=== PATIENT | female | born 1945 | race Caucasian/White ===

== ENCOUNTER 2019-08-30 14:19 | Inpatient (IN) | payer OTHER, MEDICAID ==
[~2019-08-30] VITALS: Ht 149.9 cm; Wt 95.7 kg
[~2019-08-30 14:19] MED LIST: ALLOPURINOL 10100 M3 PO; AMLODIPINE BESY10 MG PO; AMOXICILLIN 50500 M1 PO; AMOXICILLIN 50500 MG; ARIPIPRAZOLE10 MG PO; BENADRYL25 MG; BYSTOLIC 5 MG5 M1 PO; CIPRO250 M1 PO; COLACE100 MG; COREG6.25 MG PO; COZAAR 25 MG TA25 M2; CYCLOBENZAPRINE10 MG PO; EFFEXOR XR150 MG PO; ENOXAPARIN40 MG/0.1; ETODOLAC PO; FLEXERIL PO; HYDROCODON-ACE1 EAC1 PO; IRON325; LIDOCAINE VISC100 M1 MM; LISINOPRIL20 MG PO; LOVASTAT10; LOVASTATIN 20 M20 MG PO; METFORMIN HCL500 MG PO; NEURONTIN600 MG PO; NORCO 7.5-3251 EACH; PENICILLIN V P500 MG PO; PERCOCET 7.5-31 EACH; PRILOSEC OTC20 MG PO; TRAMADOL 50 MG50 MG PO; Trazodone PO; UNICOMPLEX M TA1 TA1 PO; VESICARE10 M1 PO; VICODIN 5-5001 EACH PO; [UNRECOGNIZED DRUG - OTHER]; [UNRECOGNIZED DRUG - OTHER] PO
[2019-08-30 14:27] VITALS: BP 121/67
[2019-08-30 18:04] VITALS: BP 121/80
[2019-08-30 20:06] VITALS: BP 122/60
[2019-08-31 04:06] LABS: ABSOLUTE EOSINOPHILS 0.1 thou/uL (0.0-0.7); ABSOLUTE LYMPHOCYTES 0.9 thou/uL (0.8-5.3); ABSOLUTE MONOCYTES 0.4 thou/uL (0.0-1.2); ABSOLUTE NEUTROPHILS 6.5 thou/uL (1.6-8.1); BASOPHILS 0.3 %; EOSINOPHILS 1.6 %; HEMATOCRIT 33.6 % (37.0-47.0); HEMOGLOBIN 11.3 gm/dL (12.0-15.0); LYMPHOCYTES 11.3 %; MCH 29.5 pg (26.0-34.0); MCHC 33.7 g/dL (28.0-37.0); MCV 87.3 fL (80.0-100.0); MONOCYTES 5.4 %; MPV 8.1 fl. (7.2-11.1); NUCLEATED RBCS 0 /100WBC; PLATELET COUNT* 186 thou/uL (150-400); POLYS 81.4 %; RBC 3.85 mil/uL (4.20-5.00); RDW-CV 17.1 % (10.5-14.5); WBC 7.9 thou/uL (4.0-11.0)
[2019-08-31 04:24] LABS: ALBUMIN 3.2 g/dL (3.4-5.0); CALCIUM 8.8 mg/dL (8.5-10.1); CREATININE 0.7 mg/dL (0.6-1.3); POTASSIUM 3.3 mmol/L (3.5-5.1); TOTAL BILIRUBIN 0.7 mg/dL (<0.1-1.0); TOTAL PROTEIN 6.6 g/dL (6.4-8.2)
--- NOTE | 2019-08-31 05:28 | NUR ---
FREQUENT URINATION THROUGHOUT SHIFT. APPLIED PUREWICK FOR COMFORT. SHE IS HAVING LEFT HIP PAIN, MORPHINE HELPS. SHE IS GETTING 4 MG Q4 FOR PAIN. STILL ON BEDREST AND MODERATE ASSIST. A&O X4 AND VSS. DR LEWIS HAS BEEN CONTACTED FOR CONSULT. PLAN MAYBE FOR ADVANCED IMAGING TO RULE OUT OCCULT FRACTURE. WILL WORK WITH PT/OT TO DETERMINE WB STATUS. WILL CONTINUE TO FOLLOW PLAN OF CARE.
[2019-08-31 07:50] VITALS: BP 115/91
[2019-08-31 16:00] VITALS: BP 99/65
--- NOTE | 2019-08-31 17:26 | NUR ---
ASSUMED CARE OF PATIENT AT APPROX 0730. ALERT AND ORIENTED X4. ASSESSMENT COMPLETED AND CHARTED. VSS ON ROOM AIR. PAIN MANAGED WITH ORAL OXY AND TRAMADOL. PATIENT UP WITH GAIT BELT AND WALKER, AMBULATES STEADILY. NO OTHER COMPLAINTS THIS SHIFT. FALL PRECAUTIONS IN PLACE. CALL LIGHT WITHIN REACH. HOURLY ROUNDS COMPLETED. WILL CONTINUE WITH PLAN OF CARE.
[2019-08-31 22:03] VITALS: BP 136/70
--- NOTE | 2019-09-01 05:43 | NUR ---
WAS ABLE TO SLEEP THROUGH THE NIGHT. REQUESTED PAIN MEDS TWICE FOR LEFT HIP PAIN. SHE IS ABLE TO AMBULATE WITH HER WALKER TO THE RESTROOM. PLAN IS TO FIND MANAGMENT FOR PAIN. VSS. NO NEW REPORTS OF WORSENING PAIN. WILL CONTINUE TO FOLLOW PLAN OF CARE.
[2019-09-01 07:55] VITALS: BP 105/64
[2019-09-01 10:09] VITALS: BP 105/64
[2019-09-01] MEDS ORDERED: OXYCODONE HCL 55 MG PO (10:23)
--- NOTE | 2019-09-01 12:28 | NUR ---
PT.READY FOR DISCHARGE TODAY WITH HOME HEALTH. SPOKE WITH HER AND DAUGHTER,CHERELLE. PT.SAID SHE LIVES ALONE IN AN APT. NO STAIRS TO GET IN. SHE HAS A CAREGIVER 3 TIMES A WEEK FOR 4 HRS/DAY THROUGH HER MEDICARE. USUALLY M-W-F BUT AIDE WILL COME TORROW SINCE SHE DIDN'T GET TO COME TODAY. PT.HAS A CANE/WALKER/WC AND BSC. ONLY USES CANE OR WALKER. DAUGHTER SAID P.T. RECOMMENDED TO PT.TO USE HER WALKER. PT.CHOSE [facility] FOR HH SHE HAS HAD THEM IN THE PAST. FAXED REFERRAL TO [facility] [phone]. PT.AWARE HH WILL CALL HER TO SET UP APPT.
--- NOTE | 2019-09-01 12:41 | NUR ---
PT DISCHARGED TO HOME WITH HOME HEALTH BY WHEELCHAIR AT 1235 WITH DAUGHTER. IV OUT. PERSONAL ITEMS AND PAPER SCRIPT WITH CARE NOTES. PT STABLE UPON DISCHARGE. PAIN CONTROLLED.
== END 2019-09-01 12:35 | disposition home health service (06) | DRG 554 ==
LOC: M.ERS 14:19 → M.TBA-ER 17:40 → M.ORTHSURG 17:40
PROVIDERS: ADMIT Internal Medicine
DX: M16.12 Unilateral primary osteoarthritis, left hip (principal); N39.0 Urinary tract infection, site not specified; F32.9 Major depressive disorder, single episode, unspecified; F41.9 Anxiety disorder, unspecified; I10 Essential (primary) hypertension; M79.7 Fibromyalgia; M81.0 Age-related osteoporosis without current pathological fracture; D64.9 Anemia, unspecified; K21.9 Gastro-esophageal reflux disease without esophagitis; E11.9 Type 2 diabetes mellitus without complications; M10.9 Gout, unspecified; Z96.652 Presence of left artificial knee joint; Z60.2 Problems related to living alone; F17.210 Nicotine dependence, cigarettes, uncomplicated; Z79.899 Other long term (current) drug therapy; Z88.7 Allergy status to serum and vaccine; Z90.710 Acquired absence of both cervix and uterus; Z88.8 Allergy status to other drugs, medicaments and biological substances; Z91.81 History of falling; Z96.641 Presence of right artificial hip joint

== ENCOUNTER 2019-10-23 06:02 | Inpatient (IN) | payer OTHER, MEDICAID ==
[2019-10-12 10:20] LABS: ABSOLUTE EOSINOPHILS 0.1 thou/uL (0.0-0.7); ABSOLUTE LYMPHOCYTES 0.6 thou/uL (0.8-5.3); ABSOLUTE MONOCYTES 0.3 thou/uL (0.0-1.2); ABSOLUTE NEUTROPHILS 4.4 thou/uL (1.6-8.1); BASOPHILS 0.5 %; EOSINOPHILS 1.9 %; HEMATOCRIT 33.4 % (37.0-47.0); HEMOGLOBIN 11.4 gm/dL (12.0-15.0); LYMPHOCYTES 11.4 %; MCH 29.7 pg (26.0-34.0); MCHC 34.3 g/dL (28.0-37.0); MCV 86.8 fL (80.0-100.0); MONOCYTES 5.9 %; MPV 8.1 fl. (7.2-11.1); NUCLEATED RBCS 0 /100WBC; PLATELET COUNT* 203 thou/uL (150-400); POLYS 80.3 %; RBC 3.85 mil/uL (4.20-5.00); RDW-CV 16.3 % (10.5-14.5); WBC 5.5 thou/uL (4.0-11.0)
[2019-10-12 10:37] LABS: ALBUMIN 3.4 g/dL (3.4-5.0); CALCIUM 8.9 mg/dL (8.5-10.1); CREATININE 0.8 mg/dL (0.6-1.3); POTASSIUM 3.4 mmol/L (3.5-5.1); TOTAL BILIRUBIN 0.5 mg/dL (<0.1-1.0); TOTAL PROTEIN 7.1 g/dL (6.4-8.2)
[2019-10-12 10:45] LABS: APTT 26.6 Seconds (25.0-31.3); PROTIME 10.1 Seconds (9.20-11.50)
[2019-10-12 11:26] LABS: ESR (SEDRATE) 31 mm/hr (0-30)
[2019-10-13 03:09] LABS: GLYCOHEMOGLOBIN (HGB A1C) 5.4 % (4.8-5.6)
[~2019-10-23] VITALS: Ht 149.9 cm; Wt 89.8 kg
[~2019-10-23 06:02] MED LIST changes: +BUPROPION HCL100 MG PO; +FISH OIL 1,001000 M2 PO; +FLONASE 0.05%50 MCG NARES; +LIPITOR 20 MG T20 M1 PO; +LORATIDINE 10 M10 M1 PO; +OXYCODONE HCL 55 MG PO; +PRAZOSIN 1 MG CA1 M1 PO; +SUPER THERAVIT1 EACH PO
[2019-10-23 18:55] VITALS: BP 116/56
[2019-10-23 19:38] VITALS: BP 95/54
[2019-10-24] VITALS: BP 106/65
[2019-10-24 03:55] VITALS: BP 131/66
[2019-10-24 03:56] LABS: HEMATOCRIT 28.5 % (37.0-47.0); HEMOGLOBIN 9.8 gm/dL (12.0-15.0)
--- NOTE | 2019-10-24 04:23 | NUR ---
ASSUMED CARE OF PT 10/23/19 A&OX4, PT ON BIPAP D/T APNEIC EPISODES, PREVENA WOUND VAC IN PLACE, VSS, FLUIDS INFUSING ORDERED. ASSESSMENTS AND HOURLY ROUNDINGS COMPLETED, WILL CONTINUE TO MONITOR.
[2019-10-24 08:10] VITALS: BP 139/75
[2019-10-24 09:21] LABS: % SATURATION 6 % (20-39); IRON 16 ug/dL (50-175)
--- NOTE | 2019-10-24 14:04 | NUR ---
Nutrition: Pt admitted Lt hip, hip replacement, bed rest. Gluten-free diet. Wt is 198, but pt has been losing wt intentionally over a couple of years. She stated she is at a steady wt right now but wants to lose a little more. RX: MVI, fish oil. Albumin 3.4. Should dicsharge home with HH. Was ssen for BMI 40. Low nutrition risk. GOALS: continued wt loss to 170#.
--- NOTE | 2019-10-24 14:49 | NUR ---
CM ASSESSMENT: PT LIVES HOME ALONE AND USES A WALKER. SHE HAS 2 DAUGHTERS WHO OFTEN HELP WITH CLEANING,COOKING ETC. PT STATES SHE PLANS TO GO TO SNF UPON DC. DOES NOT HAVE A PREFERENCE OF COMPANY AND WOULD LIKE IT TO BE DISCUSSED WITH HER DTR CHILO. CHILO STATES SHE WOULD PREFER [facility] OR [facility]. WILL FAX REFERRALS
--- NOTE | 2019-10-24 15:54 | NUR ---
PT A&Ox4. VITALS STABLE. IV PATENT. PAIN CONTROLLED WITH TYLENOL AND OXY IR. DENIED NAUSEA. TOLERATING DIET. UP WITH 1 USING GAITBELT AND WALKER. PT WANTING TO GO TO SKILLED FACILITY. WOUND VAC IN PLACE. FALL PRECAUTIONS IN PLACE. CALL LIGHT WITHIN REACH. WILL CONITNUE TO MONITOR.
[2019-10-24 16:00] VITALS: BP 136/48
--- NOTE | 2019-10-24 16:49 | NUR ---
CALL FROM [facility], STATING ELISABETH/[facility]AC[facility] OF [facility] CALLED AND SAID THEY CAN ACCEPT PT.MEDICALLY. THEY WILL NEED TO GET AUTH ON HER. ELISABETH ASKED TO CALL HER IN THE [phone].
[2019-10-24 20:40] VITALS: BP 93/50
[2019-10-25] VITALS (7 sets, daily range): BP systolic 81–114; BP diastolic 36–61
[2019-10-25 03:44] LABS: HEMATOCRIT 23.2 % (37.0-47.0)
--- NOTE | 2019-10-25 04:55 | NUR ---
PATIENT HAS REMAINED ALERT AND ORIENTED X 4 THROUGHOUT THE SHIFT AND RESTING QUIETLY ON HOURLY ROUNDS. DOES DEMONSTRATE EPISODES OF SLEEP APNEA. ROOM AIR SAT 85% INITIALLY AT MIDNIGHT VITAL SIGNS UNTIL WELL AWAKE. O2 APPLIED AT THAT TIME AT 2L/MIN. SPOT CHECKS WHILE ASLEEP THERAFTER 95-96%. ALSO NOTED LOW BLOOD PRESSURES THIS SHIFT WITH ACCOMPANIED LOW URINE OUTPUT. IVF'S INITIATED PER OCT. F/U BP FOR 399 STILL LOW BP. SPOKE WITH DR. HUDSON AT 0425 WITH ORDER FOR FLUID BOLUS. PATIENT HAS DENIED DIZZINESS WHEN UP. PREVENA WOUND VAC LEFT HIP CLEAN AND DRY. AMBULATING WITH CGA, GAIT BELT AND WALKER TO BR. MEDICATED FOR PAIN X 3 OF THIS WRITING TO GOOD EFFECT. CONTINUE TO MONITOR.
--- NOTE | 2019-10-25 12:29 | OP ---
[address] [address] OPERATIVE REPORT Name: LEANNAADENIKE BRIDGET MURILLO Room: [address] IN [facility]#: [id number] Admission: 10/24/19 Attend Phys: Arley Romeo Discharge: Date of : 47 Report #: [id number] THIS REPORT FOR: //name// cc: Maricarmen Willard Michelle RNP ~ THIS REPORT FOR: //name// CC: Maricarmen Huang DICTATED BY: Arnulfo Morrow DO DATE OF SERVICE: 10/23/2019 PREOPERATIVE DIAGNOSIS: Left hip advanced degenerative joint disease. POSTOPERATIVE DIAGNOSIS: Left hip advanced degenerative joint disease. SURGERY PERFORMED: Left total hip arthroplasty through an anterior approach. SURGEON: Harvey Huang DO. CD STORAGE AND MATERIALS MAKE UP HELPER: Arnulfo Morrow DO. SECOND ASSEMBLER UTILITY BUILDINGS: ALIVIA Naranjo. ANESTHESIA: General. ESTIMATED BLOOD LOSS: 450 mL. COMPLICATIONS: None. DISPOSITION: Stable to PACU. ORTHOPEDIC IMPLANTS: Biomet total hip system was utilized with the following components: 1. G7 52 mm acetabular shell. 2. A 36 mm Hi-Wall acetabular polyethylene liner. 3. A 36 mm ceramic head. 4. Size 12 Taperloc Microplasty high offset femoral stem. 5. Two cancellous bone screws. INDICATIONS FOR PROCEDURE: The patient is a pleasant 74-year-old female who has been followed in the outpatient Orthopedic Clinic regarding longstanding left hip pain. Physical exam and radiographic findings demonstrated advanced degenerative joint disease of the left hip with collapse of the femoral head. [address] [address] OPERATIVE REPORT Name: LEANNAADENIKE MURILLOBRIDGET Chey Room: [address] IN [facility].#: [id number] Admission: 10/24/19 Attend Phys: Arley Romeo Discharge: Date of : 47 Report #: [id number] She had tried and failed conservative care including NSAIDs, activity modifications, and attempted weight loss and home exercise program. We discussed further treatment options including left total hip arthroplasty. Risks, benefits, complications, and alternatives were discussed with the patient in detail. Risks include, but not limited to, bleeding, DVT, PE, infection, blood loss, instability/dislocation, continued left hip pain, need for repeat surgery, complication with anesthesia, periprosthetic fracture, and even . The patient expressed understanding and wished to proceed. DESCRIPTION OF PROCEDURE: The patient was transferred to the operating suite and placed on the operating table in supine position. She was given the benefit of general anesthesia. The bilateral lower extremities were placed in traction boots on the [place] table. The left hip was then prepped and draped in the usual sterile fashion. A time-out was taken to confirm the appropriate patient identification, operative site, and procedure to be performed. All in the room were in agreement with the time-out. Procedure began by incising the skin 2 fingerbreadths lateral and 2 fingerbreadths distal to the ASIS. Dissection was carried down sharply with electrocautery for hemostasis down to the level of the iliotibial band. A fresh scalpel blade was then used to incise the iliotibial band in line with the fibers of the tensor fascia harini. Interval was then developed between the tensor fascia harini and the sartorius. The ascending branch of the lateral circumflex vessels was identified and cauterized using Aquamantys. The electrocautery was then used to further dissect down to the level of the joint capsule. A Benoit elevator was used to elevate soft tissue off the exposed hip capsule. Appropriate retractors were then placed. We then performed a capsulectomy using electrocautery. With appropriate retractors in place, a femoral neck cut was then performed starting at the saddle and then ending one fingerbreadth above the level of the lesser trochanter. A napkin ring osteotomy was performed. The femoral head and neck were then removed and measured. Further, soft tissue was debrided using electrocautery including the acetabular labrum. We then sequentially reamed the acetabulum to a size 51 mm. Appropriate medialization and final positioning was confirmed using C-arm fluoroscopy. The hip was then irrigated and final 52 mm acetabular shell was impacted. C-arm fluoroscopy was again used to confirm appropriate positioning of the cup. Two screws were then drilled and inserted through the acetabular cup followed by the Hi-Wall acetabular liner. Attention was then addressed to the femur, where further releases were done on the hip and hip capsule off the medial and lateral aspects of the proximal femur to allow for appropriate mobilization and exposure. The leg was then externally rotated, extended, and adducted. Appropriate [place] [address] OPERATIVE REPORT Name: BRIDGET GUNTER Room: [address] IN [facility].#: [id number] Admission: 10/24/19 Attend Phys: Arley Romeo Discharge: Date of : 47 Report #: [id number] osteotome was used to gain access to the proximal femoral canal followed by the rattail rasp. The femoral canal was then sequentially broached to a size 12 mm. Trial reduction was performed using a 12 mm high offset stem, 36 mm head, and a +3 neck length. Trial reduction was performed. Then, hip was taken through range of motion and was found to be stable in all planes. C-arm images were obtained, which demonstrated appropriate positioning of our trial implants as well as appropriate leg lengths when compared to the contralateral side. Trial implants were then removed. The hip was thoroughly irrigated. Topical vancomycin powder was applied. Final 12 mm high offset femoral stem was impacted along with a 36 mm +3 ceramic head. Final reduction was performed. Again, C-arm was used to confirm appropriate positioning of all of our orthopedic implants without any evidence of complication. The hip was again taken through range of motion to test stability and was found to be stable without any evidence of subluxation or dislocation. The IT band was then closed using a #1 running Stratafix. Subcutaneous tissue was closed using a 2-0 Monocryl in an inverted fashion. Final skin closure was performed using a 3-0 running subcuticular Stratafix followed by skin glue. Sterile dressings were applied and the patient was transferred to PACU in stable condition. At the end of procedure, needle and sponge counts were correct x 2. ATTESTATION: Dr. Huang was present and scrubbed in through the entirety of the procedure. <ELECTRONICALLY SIGNED> By: Jama Hartman DO 10/25/19 1229 1629 [id number] Huang DO /nt
--- NOTE | 2019-10-25 17:54 | NUR ---
ASSUMED CARE OF PATIENT AT APPROX 0730. ALERT AND ORIENTED X4. ASSESSMENT COMPLETED AND CHARTED. VSS ON ROOM AIR. NO COMPLAINTS OF PAIN OR SOA THIS SHIFT. ANTIBIOTICS INFUSED ORDERED. PATIENT UP AD AWA IN THE ROOM AND WALKING THE UNIT. CALL LIGHT IN REACH. HOURLY ROUNDS COMPLETED. WILL CONTINUE WITH PLAN OF CARE.
--- NOTE | 2019-10-25 18:01 | NUR ---
ASSUMED CARE OF PATIENT AT APPROX 0730. ALERT AND ORIENTED X4. ASSESSMENT COMPLETED AND CHARTED. VSS ON ROOM AIR. PAIN MANAGED WITH SCHEDULED TYLENOL AND PRN OXY. PATIENT UP WITH ASSIST USING WALKER AND GAIT BELT. NO OTHER COMPLAINTS THIS SHIFT. FALL PRECAUTIONS IN PLACE. CALL LIGHT WITHIN REACH. HOURLY ROUNDS COMPLETED. WILL CONTINUE WITH PLAN OF CARE.
[2019-10-26] VITALS (7 sets, daily range): BP systolic 90–136; BP diastolic 41–92
--- NOTE | 2019-10-26 05:14 | NUR ---
PATIENT HAS REMAINED ALERT AND ORIENTED X 4 THROUGHOUT THE SHIFT AND RESTING QUIETLY ON HOURLY ROUNDS. UP TO BR OR BSC WITH MIN ASSIST SUPINE TO SIT AND CGA SIT TO STAND FOR AMBULATION WITH GAIT BELT AND WALKER. DRESSING/PREVENA WOUND VAC LEFT GROIN/HIP CLEAN AND DRY. ICE PACKS PROVIDED. BARBARA HOSE OFF FOR WASHING. SCD'S ON BILAT. BP AGAIN LOW THIS SHIFT. PHYSICIAN MADE AWARE WITH ORDER FOR IVF BOLUS. THIS WAS PROVIDED ORDERED WITH SOME IMPROVEMENT OVERNIGHT. PLEASE NOTE MIDNIGHT BP TAKEN AFTER ACTIVITY. [id number] TAKEN BOTH AFTER ACTIVITY AND AGAIN AT REST. OVERNIGHT OXIMETRY IN PROGRESS. MEDICATED FOR PAIN X 2 THIS SHIFT. CONTINUE TO MONITOR.
[2019-10-26 07:19] LABS: URINE BILIRUBIN NEGATIVE (Negative); URINE BLOOD NEGATIVE (Negative); URINE CLARITY CLEAR; URINE COLOR YELLOW; URINE GLUCOSE-RANDOM NEGATIVE (Negative); URINE KETONES NEGATIVE (Negative); URINE LEUKOCYTES-REFLEX NEGATIVE (Negative); URINE NITRITE-REFLEX NEGATIVE (Negative); URINE PROTEIN NEGATIVE (Negative); URINE SPECIFIC GRAVITY <= 1.005 (1.005-1.030); URINE UROBILINOGEN 0.2 E.U./dl (0.2-1.0)
[2019-10-26 07:34] LABS: HEMATOCRIT 21.8 % (37.0-47.0); HEMOGLOBIN 7.5 gm/dL (12.0-15.0)
--- NOTE | 2019-10-26 13:30 | NUR ---
PT.INSURANCE DENIED AUTH FOR SNF EVEN AFTER PEER TO PEER WITH . PT.INFORMED EARLIER. SHE SAID THE HAD TOLD HER. SHE IS AWARE OF DISCHARGE FOR TOMORROW. ALSO EXPLAINED SHE WILL NEED O2 AT HRS OF SLEEP AND HOME HEALTH. SHE SAID SHE HAS A CAREGIVER THROUGH HER MEDICAID FOR 3 DAYS WEEK FOR 4 HRS/DAY. ASKED IF HER DAUGHTERS COULD STAY WITH HER OR SHE COULD STAY WITH THEM. SHE SAID NO, THEY WORK. SHE CHOSE [facility] FOR HER O2 THEY CONTRACT WITH HER INSURANCE. FAXED PRESCRIPTION, OVERNIGHT OXIMETRY AND CARE NOTE FROM 10/25 TO C[facility]ACE/[facility]. PT. WOULD LIKE TO USE [facility] FOR HOME HEALTH SHE HAS USED THEM BEFORE. FAXED REFERRAL AND DISCHARGE DATE TO [facility]. CM CALLED IN PRESCRIPTION FOR ELIQUIS WRITTEN TO HER PHARMACY-[facility]. LEFT VM FOR CHILO CHISHOLM (DAUGHTER) ON HER CELL REGARDING ABOVE.
--- NOTE | 2019-10-26 17:02 | NUR ---
I have reviewed the documentation by IVY INFANTE from 10/26/19 to 10/26/19 and I concur with it. MICHAEL ORTIZ
--- NOTE | 2019-10-26 18:34 | NUR ---
PT HAS AMBULATED WITH WALKER AND STAFF TO BATHROOM AND VOIDS WELL AND HAS HAD BM.PT WAS SEEN AMBULATING IN [place] WITH THERAPY THIS AFTERNOON. PRN FOR PAIN GIVEN WITH GOOD EFFECT. DRESSING PREVINA WOUND VAC INTACT TO LT HIP. PT HAS BEEN UP TO RECLINER WITH FEET ELEVATED. SL INTACT TO LT FA,RESTARTED TODAY BY JAKE TORRES. PT REMAINS ALERT AND ORIENTATED AND PLANS TO DISCHARGE TO HOME TOMORROW.
[2019-10-27] VITALS: BP 129/57
--- NOTE | 2019-10-27 04:29 | NUR ---
PT ON RA THEN 2L BY SANTO HS. MEDS GIVEN ORDERED. PAIN MANAGED WITH SCHEDULED TYLENOL. UP TO THE BATHROOM WITH STANDBY ASSIST. WOUND VAC IN PLACE. HOURLY ROUNDINGS COMPLETED. WILL CONTINUE TO MONITOR.
[2019-10-27 09:00] VITALS: BP 115/60
--- NOTE | 2019-10-27 15:54 | NUR ---
AM ASSESSMENT AND VITAL SIGNS COMPLETED DOCUMENTED. PT IS DOING WELL POST OPERATIVELY BUT SHE STILL REQUIRES HELP GETTING HER LEFT LEG INTO AND OUT OF BED. PT WORKED WITH OT AND PT AND PLANS TO GO HOME TOMORROW. DRESSING C/D/I. PT HAS BEEN UP TO THE BATHROOM WITH SUPERVISION. FALL PRECAUTIONS AND HOURLY ROUNDING CONTINUE.
[2019-10-27 16:00] VITALS: BP 97/56
--- NOTE | 2019-10-27 16:30 | NUR ---
Jere SAW PT.LATE THIS AFTERNOON. THERAPIST TAUGHT HER TO USE GAIT BELT STIRRUP TO PUT ON FOOT TO BE ABLE TO PULL IT UP ON BED AND LOWER IT TO GROUND. PT.SAID SHE SLEEPS IN HER RECLINER ALOT ANYWAY. SHE FEELS SHE CAN GO HOME TOMORROW. DAUGHTER, REJI, AT BEDSIDE. SHE DID NOT FEEL SHE OR HER SISTER COULD STAY WITH PT.,EVEN AT NIGHT. PT.SAID I WILL BE FINE. NOTIFIED [facility] THAT PT.NOT DISCHARGING TODAY. ALSO NOTIFIED [facility]/ZEYNEP THAT PT.WILL DISCHARGE TOMORORW. SHE SAID OVERNIGHT OXIMETRY RESULTS WILL AND HAVE TO BE REPEATED IF PT.IS NOT DISCHARGED TOMORROW. ALL OF THE ABOVE TOLD TO AND RNJANELLE.
--- NOTE | 2019-10-28 04:47 | NUR ---
VSS ON RA. ON 2L HS. MEDS GIVEN ORDERED. UP STANDBY. WOUND VAC IN PLACE. NO OTHER CONCERNS AT THIS TIME. WILL CONTINUE TO MONITOR.
[2019-10-28 08:07] VITALS: BP 132/71
[2019-10-28] MEDS ORDERED: ELIQUIS5 MG PO (13:27)
[2019-10-28] MEDS ORDERED: OXYCODONE HCL 55 MG PO (13:29)
--- NOTE | 2019-10-28 15:03 | NUR ---
PT DISCHARGED BY WHEELCHAIR TO HOME WITH HOME HEALTH AT 1502 WITH NURSING STAFF AND DAUGHTER. IV OUT. WOUND VAC IN PLACE. PAIN CONTROLLED. PRESCRIPTIONS GIVEN. PERSONAL ITEMS SENT WITH PT.
[2019-10-30 15:14] VITALS: BP 132/71
--- NOTE | 2019-10-30 15:38 | NUR ---
FAXED DISCHARGE SUMMARY AND ORDERS TO [facility]. CONFIRMED WITH [facility]INTAKE THAT THEY RECEIVED AND WILL CALL TO SCHEDULE APPOINTMENTS. [phone]; [phone]
== END 2019-10-28 15:05 | disposition home health service (06) | DRG 470 ==
LOC: M.TBA 06:02 → M.ORTHSURG 06:02 → M.PRE 08:04 → M.ORTHSURG 17:52
PROVIDERS: Orthopaedic Surgery; ADMIT Internal Medicine
PROC: 0SRB03A Replacement of Left Hip Joint with Ceramic Synthetic Substitute, Uncemented, Open Approach (ICD-10-PCS; 2019-10-23)
PROC: 5A09357 Assistance with Respiratory Ventilation, Less than 24 Consecutive Hours, Continuous Positive Airway Pressure (ICD-10-PCS; principal; 2019-10-24)
DX: M16.12 Unilateral primary osteoarthritis, left hip (principal); Z68.41 Body mass index [BMI] 40.0-44.9, adult; M10.9 Gout, unspecified; F32.9 Major depressive disorder, single episode, unspecified; F41.9 Anxiety disorder, unspecified; I10 Essential (primary) hypertension; K21.9 Gastro-esophageal reflux disease without esophagitis; Z96.643 Presence of artificial hip joint, bilateral; Z96.653 Presence of artificial knee joint, bilateral; E78.00 Pure hypercholesterolemia, unspecified; R73.03 Prediabetes; M79.7 Fibromyalgia; D50.9 Iron deficiency anemia, unspecified; K59.00 Constipation, unspecified; E66.9 Obesity, unspecified; Z88.7 Allergy status to serum and vaccine; Z88.8 Allergy status to other drugs, medicaments and biological substances; Z90.710 Acquired absence of both cervix and uterus; Z82.61 Family history of arthritis; Z80.9 Family history of malignant neoplasm, unspecified; Z79.899 Other long term (current) drug therapy